=== PATIENT | male | born 1995 | race Caucasian/White ===

== ENCOUNTER 2018-03-16 15:27 | Emergency (ER) | payer MEDICAID ==
[~2018-03-16] VITALS: Ht 175.3 cm; Wt 63.5 kg
[2018-03-16 15:28] VITALS: Ht 175.3 cm; Wt 63.5 kg
[2018-03-16 16:08] LABS: BASOPHIL % 0.3 % (0-2); PLATELET COUNT 206 x10^3mcL (130-400); RED CELL DISTRIBUTION WIDTH 13.5 % (11.5-14.5)
[2018-03-16 16:26] LABS: CALCIUM 8.7 mg/dL (8.5-10.1); CARBON DIOXIDE 22.9 mmol/L (21-32); CHLORIDE SERUM 110 mmol/L (98-107); CREATININE SERUM 0.8 mg/dL (0.7-1.3); GFR1 > 60 mL/min; GLUCOSE SERUM 72 mg/dL (74-106); POTASSIUM SERUM 4.2 mmol/L (3.5-5.1); SODIUM SERUM 144 mmol/L (136-145)
[2018-03-16 16:34] LABS: ALKALINE PHOSPHATASE 78 U/L (46-116); ALT/SGPT 33 U/L (16-63); AST/SGOT 33 U/L (15-37); BILIRUBIN TOTAL 0.76 mg/dL (0.20-1.00); HDL CHOLESTEROL 59 mg/dL (40-60); LIPASE 116 IU/L (73-393); TOTAL PROTEIN, SERUM 7.1 g/dL (6.4-8.2)
[2018-03-16 16:36] LABS: T3 TOTAL 1.17 ng/mL
[2018-03-16 16:45] VITALS: BP 128/86
[2018-03-16 16:59] LABS: FREE T4 1.27 ng/dL (0.76-1.46); FREE THYROXINE INDEX 2.8 ug/dL (1.4-4.5)
[2018-03-16 17:01] LABS: CHOLESTEROL 132 mg/dL (<200); CHOLESTEROL/HDL RATIO 2.2; TRIGLYCERIDES 59 mg/dL (<150)
== END 2018-03-16 17:00 | disposition home or self-care (01) ==
LOC: ED 15:27
PROVIDERS: Specialist
DX: F41.9 Anxiety disorder, unspecified (principal); F17.210 Nicotine dependence, cigarettes, uncomplicated
CPT/HCPCS: 83880; 84439; 99406; J2060; J7030; Q0092